=== PATIENT | male | born 1955 | race Caucasian/White ===

== ENCOUNTER 2022-01-24 13:34 | Day surgery (SDC) | payer MEDICARE ==
[2022-01-19 09:59] LABS: BASOPHILS # (AUTO) 0.1 X10'3 (0-0.2); BASOPHILS % (AUTO) 1.4 % (0-1); EOSINOPHILS # (AUTO) 0.2 X10'3 (0-0.9); EOSINOPHILS % (AUTO) 2.7 % (0-6); HEMOGLOBIN 16.3 g/dl (14.0-17.9); LYMPHOCYTES # (AUTO) 1.6 X10'3 (1.1-4.8); LYMPHOCYTES % (AUTO) 24.9 % (21-51); MEAN CORPUSCULAR HEMOGLOBIN 33.3 PG (27.0-31.0); MEAN CORPUSCULAR HGB CONC 33.8 g/dL (33.0-36.5); MEAN CORPUSCULAR VOLUME 98.2 FL (78-98); MEAN PLATELET VOLUME 8.5 FL (7.4-10.4); MONOCYTES # (AUTO) 0.6 X10'3 (0-0.9); NEUTROPHILS # (AUTO) 3.8 X10'3 (1.8-7.7); PLATELET COUNT 200 X10'3 (140-440); RED BLOOD COUNT 4.89 X10'6 (4.70-6.10); RED CELL DISTRIBUTION WIDTH 13.2 % (11.5-14.5); WHITE BLOOD COUNT 6.2 X10'3 (4.5-11.0)
[2022-01-19 10:13] LABS: APTT 27 SECONDS (22-32)
[2022-01-24] VITALS (7 sets, daily range): BP systolic 132–170; BP diastolic 76–110
[~2022-01-24] VITALS: Ht 182.9 cm; Wt 89.4 kg
[~2022-01-24 13:34] MED LIST: LIDOcaine 1% (10mg/ml)w/preservative inj. 20ml MDV ONE; fentaNYL/PF 50MCG/1 ML 2ML syringe ONE; heparin 1,000unit/ml 10ml vial 10 ML ONE; iohexol 350MG/ML 100ml bottle IV ONE; midazolam 1 mg/ML 2ml injection ONE; nitroGLYCERIN-Tridil 50MG/D5W 250 ML IV ONE; verapamil 2.5 mg/ml inj IV ONE
[2022-01-24] MEDS ORDERED: diphenhydrAMINE 25mg capsule PO PRN (13:50)
[2022-01-24] MEDS ORDERED: normal saline 1,000 ML IV SCH (13:50)
[2022-01-24] MEDS ORDERED: LORazepam 0.5 MG tablet PO PRN (13:50)
[2022-01-24] MEDS ORDERED: PANT40TA54 PO (13:54)
[2022-01-24] MEDS ORDERED: CELE-85 PO (13:54)
[2022-01-24] MEDS ORDERED: DULO60CA65 PO (13:54)
[2022-01-24] MEDS ORDERED: MULT-1085 PO (13:59)
[2022-01-24] MEDS ORDERED: OMEG1CAP2 (13:59)
[2022-01-24] MEDS ORDERED: LACT1CAP65 PO (13:59)
[2022-01-24] MEDS ORDERED: CHOL20002 PO (13:59)
[2022-01-24] MEDS ORDERED: ASPI-1265 PO (13:59)
[2022-01-24 14:30] LABS: ALBUMIN 4.4 G/DL (3.4-5.0); ANION GAP 11 (8-16); BLOOD UREA NITROGEN 22 MG/DL (7-18); BUN/CREATININE RATIO 19.5 (5.4-32.0); CALCIUM 8.9 MG/DL (8.5-10.1); CHLORIDE 104 MMOL/L (99-107); CREATININE 1.13 MG/DL (0.60-1.10); GLUCOSE 108 MG/DL (70-104); POTASSIUM 3.8 MMOL/L (3.5-5.1); SODIUM 141 MMOL/L (135-145); TOTAL CARBON DIOXIDE 25.6 MMOL/L (24-32); eGFR 65 ML/MIN
[2022-01-24 15:31] LABS: ISTAT HGB ART 15.3 g/dl (14.0-18.0); ISTAT Hct ART 45 %PCV (42-52); ISTAT O2 SATURATION ARTERIAL 97 % (95-98); ISTAT SOURCE ART
[2022-01-24 16:26] LABS: ISTAT Hct MIX 44 %PCV (42-52); ISTAT O2 SATURATION MIX VENOUS 62 % (60-80); ISTAT SOURCE VEN
--- NOTE | 2022-01-24 17:20 | NUR ---
Pt ate 100% of lunch tray, 250ml oral fluid intake. Voided 350ml yellow clear.
== END 2022-01-24 17:40 | disposition home or self-care (01) ==
LOC: SSTAY O 13:34
PROVIDERS: ATTEND Internal Medicine Interventional Cardiology
DX: I34.0 Nonrheumatic mitral (valve) insufficiency (principal); I25.10 Atherosclerotic heart disease of native coronary artery without angina pectoris; Z79.899 Other long term (current) drug therapy; Z88.0 Allergy status to penicillin; Z87.891 Personal history of nicotine dependence; Z79.01 Long term (current) use of anticoagulants
CPT/HCPCS: 36415; 80048; 82803; 85014; 85025; 85610; 85730; 93005; 93460; 99152; 99153; C1769; C1894; J1644; J2250; J3010; J3490; Q0163; Q9967; A4620; A5120; A6258